=== PATIENT | male | born 2000 | race Caucasian/White ===

== ENCOUNTER 2023-05-09 00:35 | Inpatient (IN) | payer OTHER, BC ==
[2023-05-09 01:02] LABS: Hematocrit 39.8 % (42.0-52.0); Hemoglobin 12.1 g/dL (14.0-18.0); Mean Corpuscular HGB CONC 30.4 g/dL (32.0-36.0); Mean Corpuscular Hemoglobin 30.5 pg (25.0-35.0); Mean Corpuscular Volume 100.3 fl (78.0-98.0); Mean Platelet Volume 9.1 fL (7.4-10.4); Platelet Count 283 10x3/uL (130-400); RBC Distribution Width 11.9 % (11.5-14.5); Red Blood Cell (RBC) Count 3.97 mill/uL (4.00-5.20); White Blood Cell (WBC) Count 15.3 10x3/uL (4.8-10.8)
[2023-05-09] MEDS ORDERED: Calcium Chloride 1 GM/10 ML Abboject SYRINGE ONE (01:02)
[2023-05-09] MEDS ORDERED: Norepinephrine 4 MG/4 ML VIAL ONE (01:02)
[2023-05-09 01:03] LABS: Delete Auto Diff?? YES; Manual Diff?? YES
[2023-05-09] MEDS ORDERED: Sodium Bicarb 50 MEQ/50 ML VIAL ONE (01:03)
[2023-05-09] MEDS ORDERED: Sodium Chloride 0.9% 250 ML 250 ML ONE (01:08)
[2023-05-09 01:21] LABS: INR-International Normal Ratio 5.9; Prothrombin Time 55.3 sec (12.0-14.7)
[2023-05-09] MEDS ORDERED: Rocuronium Bromide 10 MG/ML (10ML VIAL) ONE ×4 (01:21→13:16)
[2023-05-09] MEDS ORDERED: PROPOFOL 0 ML ONE (01:22)
[2023-05-09 01:29] LABS: Acetaminophen Less than 10 mcg/mL (10.0-30.0); Alcohol 141.3 mg/dL (Less than 10); Salicylate Less than 8.0 mg/dL (15.0-30.0)
[2023-05-09] MEDS ORDERED: Boostrix 0.5 ML (Tdap) VIAL (>/=7 yrs of age) ONE ×2 (01:31→04:21)
[2023-05-09 01:47] LABS: ALT (SGPT) 429 U/L (8-55); AST (SGOT) 501 U/L (5-34); Alkaline Phosphatase 53 U/L (50-130); BUN (Urea Nitrogen) 12 mg/dL (8.9-20.6); Bilirubin, Total 0.2 mg/dL (0.2-1.2); Calc. Creatinine Clearance 0 mL/min (70-130); Estimated GFR 61; Globulin 1.9 g/dL (2.4-3.5); Glucose 132 mg/dL (70-105); Magnesium 2.9 mg/dL (1.7-2.2); Potassium 3.5 mmol/L (3.5-5.1)
[2023-05-09] MEDS ORDERED: levETIRAcetam 500 MG/5 ML VIAL ONE (01:47)
[2023-05-09] MEDS ORDERED: Propofol 1,000 MG/100 ML VIAL IV ONE (01:54)
[2023-05-09 02:19] LABS: Anisocytosis SLIGHT = 6-15 cells HPF (0-5); Band 6 % (5-11); Burr Cells SLIGHT = 2-5 cells HPF (0-1); CellaVision Operator ID LAB.JMM; Lymphocytes 38 % (28-48); Neutrophil 56 % (31-61); Platelet Adequacy Comment Platelets Normal; Smudge Cells 14.4 %; Total Cell Count 104
[2023-05-09 02:42] LABS: Troponin I Less than 0.010 ng/mL (< 0.028)
[2023-05-09 02:49] LABS: Calcium 8.7 mg/dL (7.6-10.4); Chloride 104 mmol/L (98-107); Sodium 140 mmol/L (136-145)
[2023-05-09 02:50] LABS: Anion Gap 20 mmol/L (10-20); Carbon Dioxide 20 mmol/L (22-29)
[2023-05-09 02:56] LABS: PTT 30.3 sec (22.9-36.1)
[2023-05-09] MEDS ORDERED: Dexamethasone 4 mg/ml Vial SLOW IVP SCH (03:00)
[2023-05-09 03:02] LABS: Amphetamine Not Detected (NotDetected); Barbiturates Screen Not Detected (NotDetected); Benzodiazepine Screen Not Detected (NotDetected); Cocaine Metabolite Screen Not Detected (NotDetected); Methadone Not Detected (NotDetected); Methamphetamine Not Detected (NotDetected); Opiate Screen Not Detected (NotDetected); Oxycodone Screen Not Detected (NotDetected); Phencyclidine (PCP) Not Detected (NotDetected); THC/Cannabinoid Screen Not Detected (NotDetected); Tricyclic Screen Not Detected (NotDetected)
[2023-05-09 03:09] LABS: Bacteria/HPF None Seen HPF (None Seen); Bilirubin Negative (Negative); Blood, Urine 3+ (Negative); CAUTI Indications for Culture Urological Procedure; Clarity Turbid (Clear); Glucose, Urine (Dipstick) Normal (Negative); Ketone, Urine Negative (Negative); Leukocyte Negative Leu/uL (Negative); Nitrite Negative (Negative); Protein, Urine (Dipstick) 50 mg/dL (Neg-Trace); RBC/HPF Greater than 50 HPF (0-3); Specific Gravity, Urine 1.022 (1.002-1.036); Squamous Epithelial None Seen HPF (0-3); Urobilinogen Normal mg/dL (Less than 2); WBC/HPF 21-50 HPF (0-3); pH, Urine 6.5 (5.0-9.0)
[2023-05-09 03:10] LABS: Urine Culture Reflex Yes Yes
[2023-05-09 03:23] LABS: Actual Bicarbonate (HCO3a) 16.5 mEq/L (22-28); Analyzer IN Cardio ER; Base Excess (BEa) -12.4 mEq/L (-2.0 to +3.0); CO2 Tension 48.8 mmHg (35.0-45.0); Calcium, Ionized (arterial) 1.31 mmol/L (1.12-1.30); Carboxyhemoglobin (COHb) 0.3 gm% (0.0-3.0); Hematocrit-ABG 43 % (42.0-52.0); Hemoglobin (Hb) 14.7 g/dL (11.4-15.4); O2 Tension (PaO2), arterial 391.2 mmHg (80.0-100.0); Potassium - ABG Lab 4.25 mmol/L (3.70-5.30); Puncture Site LRA; pH, Arterial 7.147 (7.35-7.45)
[2023-05-09] MEDS ORDERED: Acetaminophen 325 MG TAB PO PRN (03:37)
[2023-05-09] MEDS ORDERED: Fentanyl BOLUS 250 ML IVPB PRN (03:45)
[2023-05-09] MEDS ORDERED: Ventilator Sedation Protocol 1 EACH FS SCH (03:45)
[2023-05-09] MEDS ORDERED: DISCONTINUE PREVIOUS NARCOTIC PAIN MEDICATIONS AND BENZODIAZEPINES FS SCH (03:45)
[2023-05-09] MEDS ORDERED: Propofol BOLUS 1,000 MG/100 ML VIAL IV PRN (03:45)
[2023-05-09] MEDS ORDERED: Electrolyte Replacement Protocol 1 EACH FS SCH (04:00)
[2023-05-09] MEDS: Lorazepam 2 MG/ML VIAL SLOW IVP PRN (04:05)
[2023-05-09] MEDS: Dexamethasone 4 mg/ml Vial SLOW IVP SCH ×3 (06:28→17:14)
[2023-05-09] MEDS: Potassium Chloride 20 MEQ in Premix 1 BAG IVPB SCH ×2 (06:29→08:19)
[2023-05-09 06:53] LABS: #Monocytes 1.1 thou/uL (0.11-0.59); #Neutrophils 11.5 thou/uL (1.40-6.50); %Basophils 0.1 % (0.0-1.0); %Eosinophils 0.1 % (0.0-10.0); %Monocytes 8.3 % (0.0-4.0); Hematocrit 39.9 % (42.0-52.0); Hemoglobin 14.1 g/dL (14.0-18.0); Mean Corpuscular HGB CONC 35.3 g/dL (32.0-36.0); Mean Corpuscular Hemoglobin 29.8 pg (25.0-35.0); Mean Platelet Volume 8.9 fL (7.4-10.4); Platelet Count 235 10x3/uL (130-400); RBC Distribution Width 12.6 % (11.5-14.5); Red Blood Cell (RBC) Count 4.73 mill/uL (4.00-5.20); White Blood Cell (WBC) Count 13.7 10x3/uL (4.8-10.8)
[2023-05-09] MEDS: Morphine 2 MG/ML VIAL SLOW IVP PRN (06:53)
[2023-05-09 07:01] LABS: Lactic Acid 3.6 mmol/L (0.5-2.2)
[2023-05-09] MEDS: Sodium Chloride 0.9% 1,000 ML IV SCH ×2 (07:01→14:00)
[2023-05-09 07:04] LABS: Phosphorus 2.3 mg/dL (2.3-4.7)
[2023-05-09 07:09] LABS: INR-International Normal Ratio 1.1; PTT 23.7 sec (22.9-36.1); Prothrombin Time 14.9 sec (12.0-14.7)
[2023-05-09] MEDS ORDERED: Albumin 5% 500 ML ONE (07:11)
[2023-05-09] MEDS ORDERED: Vasopressin 20 UNITS/ML VIAL ONE (07:12)
[2023-05-09] MEDS ORDERED: Midazolam HCl 2 mg/2 ml Vial ONE ×3 (07:13→12:01)
[2023-05-09] MEDS ORDERED: fentaNYL PF 100 MCG/2 ML SYRINGE ONE ×4 (07:13→12:02)
[2023-05-09] MEDS ORDERED: Vancomycin 1 GM VIAL ONE ×2 (07:27→09:43)
[2023-05-09 07:28] LABS: Mean Corpuscular Volume 84.4 fl (78.0-98.0)
[2023-05-09] MEDS ORDERED: Fentanyl CADD 100 ML ONE (08:12)
[2023-05-09] MEDS ORDERED: ePHEDrine Sulfate 50 MG/10 ML VIAL ONE (08:19)
[2023-05-09] MEDS ORDERED: PHENYLEPHRINE-NS 100 MCG/ML 10 ML SYRINGE ONE ×2 (08:44→11:14)
[2023-05-09] MEDS ORDERED: Vecuronium 10 MG VIAL ONE ×2 (08:44→09:13)
[2023-05-09] MEDS ORDERED: Albuterol HFA (OR) 200 PUFF INH ONE (08:44)
[2023-05-09] MEDS ORDERED: Famotidine 20 MG TAB PO SCH (09:00)
[2023-05-09] MEDS ORDERED: Albuterol 200 PUFF (6.7GM INHALER) ONE (09:45)
[2023-05-09] MEDS ORDERED: Albuterol Sulfate 200 PUFF INH ONE (09:49)
[2023-05-09 09:53] LABS: INR-International Normal Ratio 1.1; Prothrombin Time 14.3 sec (12.0-14.7)
[2023-05-09] MEDS ORDERED: Dexamethasone 20 MG/5 ML VIAL ONE (11:27)
[2023-05-09] MEDS ORDERED: Iopamidol-370 76% 500 ML MDV (1 ML CHARGE) ONE (13:29)
[2023-05-09] MEDS: Folic Acid 1 MG TAB PO SCH (14:00)
[2023-05-09] MEDS: Fentanyl CADD 100 ML IV SCH (14:00)
[2023-05-09] MEDS: Famotidine/PF 20 mg/2ml Vial SLOW IVP SCH ×2 (14:00→21:42)
[2023-05-09] MEDS: CEFAZOLIN 2 GM in Sodium Chloride 0.9% 100 ML IVPB SCH ×2 (14:00→21:49)
[2023-05-09] MEDS ORDERED: CEFAZOLIN 1 GM VIAL SLOW IVP SCH (14:00)
[2023-05-09] MEDS: Propofol 1,000 MG/100 ML VIAL IV PRN ×3 (14:00→22:09)
[2023-05-09] MEDS: Thiamine HCl 200 MG/2 ML VIAL SLOW IVP SCH (14:02)
[2023-05-09 14:28] LABS: Hematocrit 36.7 % (42.0-52.0); Hemoglobin 12.8 g/dL (14.0-18.0)
[2023-05-09] MEDS ORDERED: FLU VACC QS2023-24(6MOS UP)/PF 60 MCG/0.5 ML SYRINGE IM ONE (15:00)
[2023-05-09] MEDS ORDERED: Promethazine HCl 25 MG in Sodium Chloride 0.9% 50 ML IVPB PRN (15:15)
[2023-05-09] MEDS: Ondansetron PF 4 MG/2 ML Vial IVP PRN (15:31)
[2023-05-10] MEDS: Sodium Chloride 0.9% 1,000 ML IV SCH ×4 (00:40→22:45)
[2023-05-10] MEDS: Dexamethasone 4 mg/ml Vial SLOW IVP SCH ×5 (00:40→23:35)
[2023-05-10] MEDS: Propofol 1,000 MG/100 ML VIAL IV PRN ×3 (01:47→09:16)
[2023-05-10] MEDS ORDERED: Refresh Lacri-lube Opth Oint 7 GM TUBE EA EYE PRN (02:13)
[2023-05-10] MEDS ORDERED: MINERAL OIL/WHITE PETROLATUM 3.5 GM TUBE EA EYE PRN (02:16)
[2023-05-10] MEDS ORDERED: Ibuprofen 600 MG TAB PO PRN (02:28)
[2023-05-10 04:54] LABS: #Monocytes 1.2 thou/uL (0.11-0.59); #Neutrophils 10.7 thou/uL (1.40-6.50); %Basophils 0.1 % (0.0-1.0); %Monocytes 9.3 % (0.0-4.0); %Neutrophils 81.2 % (31.0-61.0); Hematocrit 31.9 % (42.0-52.0); Hemoglobin 11.2 g/dL (14.0-18.0); Mean Corpuscular HGB CONC 35.1 g/dL (32.0-36.0); Mean Corpuscular Hemoglobin 29.9 pg (25.0-35.0); Mean Corpuscular Volume 85.1 fl (78.0-98.0); Mean Platelet Volume 9.3 fL (7.4-10.4); Platelet Count 208 10x3/uL (130-400); RBC Distribution Width 13.1 % (11.5-14.5); Red Blood Cell (RBC) Count 3.75 mill/uL (4.00-5.20); White Blood Cell (WBC) Count 13.1 10x3/uL (4.8-10.8)
[2023-05-10 05:30] LABS: ALT (SGPT) 305 U/L (8-55); AST (SGOT) 211 U/L (5-34); Albumin 3.6 g/dL (3.5-5.0); Alkaline Phosphatase 57 U/L (50-130); Anion Gap 12 mmol/L (10-20); BUN (Urea Nitrogen) 17 mg/dL (8.9-20.6); Bilirubin, Total 0.5 mg/dL (0.2-1.2); Calc. Creatinine Clearance 142 mL/min (70-130); Calcium 8.4 mg/dL (7.8-10.44); Carbon Dioxide 19 mmol/L (22-29); Chloride 112 mmol/L (98-107); Estimated GFR 92; Globulin 2.3 g/dL (2.4-3.5); Glucose 161 mg/dL (70-105); Potassium 3.9 mmol/L (3.5-5.1); Protein, Total 5.9 g/dL (6.0-8.3); Sodium 139 mmol/L (136-145)
[2023-05-10] MEDS: CEFAZOLIN 2 GM in Sodium Chloride 0.9% 100 ML IVPB SCH ×3 (05:43→23:34)
[2023-05-10 07:35] LABS: Actual Bicarbonate (HCO3a) 17.2 mEq/L (22-28); Base Excess (BEa) -4.9 mEq/L (-2.0 to +3.0); Calcium, Ionized (arterial) 1.11 mmol/L (1.12-1.30); Carboxyhemoglobin (COHb) 1.1 gm% (0.0-3.0); Hematocrit-ABG 39 % (42.0-52.0); Hemoglobin (Hb) 13.2 g/dL (11.4-15.4); O2 Tension (PaO2), arterial 87.2 mmHg (80.0-100.0); Potassium - ABG Lab 3.94 mmol/L (3.70-5.30); pH, Arterial 7.463 (7.35-7.45)
[2023-05-10] MEDS: Fentanyl CADD 100 ML IV SCH (07:46)
[2023-05-10 07:47] LABS: ALV-art Gradient 167.375 mmHg (0-20); Puncture Site Arterial Line
[2023-05-10] MEDS ORDERED: Dexmedetomidine In 0.9 % NaCl 100 ML IVPB SCH (08:45)
[2023-05-10] MEDS: Dexmedetomidine 400 MCG, Admixture Fee 1 EACH in Sodium Chloride 0.9% 96 ML IVPB SCH ×2 (09:08→17:10)
[2023-05-10] MEDS: Lorazepam 2 MG/ML VIAL SLOW IVP PRN (09:16)
[2023-05-10] MEDS: Famotidine/PF 20 mg/2ml Vial SLOW IVP SCH ×2 (10:16→21:03)
[2023-05-10] MEDS: Thiamine HCl 200 MG/2 ML VIAL SLOW IVP SCH (10:16)
[2023-05-10] MEDS: Folic Acid 1 MG TAB PO SCH (10:16)
[2023-05-10] MEDS: Morphine 2 MG/ML VIAL SLOW IVP PRN ×2 (16:57→21:03)
[2023-05-10] MEDS ORDERED: DC Sedation Protocol FS ONE (18:23)
[2023-05-10] MEDS ORDERED: Ketorolac Tromethamine 30 MG/ML VIAL IVP SCH (21:00)
[2023-05-10] MEDS ORDERED: Methocarbamol 1 GM in Sodium Chloride 0.9% 100 ML IVPB PRN (21:00)
[2023-05-11] MEDS: Morphine 2 MG/ML VIAL SLOW IVP PRN ×3 (01:20→13:57)
[2023-05-11] MEDS: Ondansetron PF 4 MG/2 ML Vial IVP PRN (01:23)
[2023-05-11] MEDS: Dexmedetomidine 400 MCG, Admixture Fee 1 EACH in Sodium Chloride 0.9% 96 ML IVPB SCH ×4 (01:23→23:30)
[2023-05-11 04:54] LABS: #Monocytes 0.8 thou/uL (0.11-0.59); %Lymphocytes 10.7 % (28.0-48.0); %Monocytes 6.5 % (0.0-4.0); %Neutrophils 82.6 % (31.0-61.0); Hematocrit 28.6 % (42.0-52.0); Hemoglobin 9.9 g/dL (14.0-18.0); Mean Corpuscular HGB CONC 34.6 g/dL (32.0-36.0); Mean Corpuscular Volume 86.7 fl (78.0-98.0); Mean Platelet Volume 9.4 fL (7.4-10.4); Platelet Count 168 10x3/uL (130-400); RBC Distribution Width 12.6 % (11.5-14.5); White Blood Cell (WBC) Count 12.1 10x3/uL (4.8-10.8)
[2023-05-11 05:17] LABS: ALT (SGPT) 192 U/L (8-55); AST (SGOT) 130 U/L (5-34); Albumin 3.6 g/dL (3.5-5.0); Alkaline Phosphatase 53 U/L (50-130); Anion Gap 13 mmol/L (10-20); BUN (Urea Nitrogen) 13 mg/dL (8.9-20.6); Bilirubin, Total 0.4 mg/dL (0.2-1.2); Calc. Creatinine Clearance 228 mL/min (70-130); Calcium 8.5 mg/dL (7.8-10.44); Carbon Dioxide 23 mmol/L (22-29); Chloride 110 mmol/L (98-107); Estimated GFR 132; Globulin 2.3 g/dL (2.4-3.5); Glucose 141 mg/dL (70-105); Potassium 4.4 mmol/L (3.5-5.1); Protein, Total 5.9 g/dL (6.0-8.3); Sodium 142 mmol/L (136-145)
[2023-05-11] MEDS: CEFAZOLIN 2 GM in Sodium Chloride 0.9% 100 ML IVPB SCH ×3 (06:26→21:00)
[2023-05-11] MEDS: Dexamethasone 4 mg/ml Vial SLOW IVP SCH ×4 (06:26→23:12)
[2023-05-11] MEDS ORDERED: Ondansetron PF 4 MG/2 ML Vial ONE ×2 (07:33→08:05)
[2023-05-11] MEDS ORDERED: PROPOFOL 20 ML ONE (07:33)
[2023-05-11] MEDS ORDERED: Dexamethasone 4 mg/ml Vial ONE (07:33)
[2023-05-11] MEDS ORDERED: fentaNYL PF 100 MCG/2 ML SYRINGE ONE ×2 (07:33→07:55)
[2023-05-11] MEDS ORDERED: Rocuronium Bromide 10 MG/ML (10ML VIAL) ONE ×2 (07:33→08:05)
[2023-05-11] MEDS: Sodium Chloride 0.9% 1,000 ML IV SCH ×3 (07:43→22:50)
[2023-05-11] MEDS: Famotidine/PF 20 mg/2ml Vial SLOW IVP SCH ×2 (07:43→20:04)
[2023-05-11] MEDS: Folic Acid 1 MG TAB PO SCH (07:43)
[2023-05-11] MEDS: Thiamine HCl 200 MG/2 ML VIAL SLOW IVP SCH (07:44)
[2023-05-11] MEDS ORDERED: Midazolam HCl 2 mg/2 ml Vial ONE ×2 (07:55→10:04)
[2023-05-11] MEDS ORDERED: NEOSTIGMINE 3 MG/3 ML SYR 3 MG/3 ML SYRINGE ONE ×2 (08:05→09:52)
[2023-05-11] MEDS ORDERED: Glycopyrrolate 0.2 MG/ML 5 ML SYRINGE ONE ×2 (08:05→09:52)
[2023-05-11] MEDS ORDERED: PROPOFOL 200 MG/20 ML VIAL ONE (08:05)
[2023-05-11] MEDS ORDERED: Dexamethasone 20 MG/5 ML VIAL ONE (08:05)
[2023-05-11] MEDS ORDERED: CEFAZOLIN 1 GM VIAL ONE (08:29)
[2023-05-11] MEDS ORDERED: fentaNYL 50 mcg/mL 1 mL Vial ONE (09:27)
[2023-05-11] MEDS ORDERED: diphenhydrAMINE 25 MG CAP PO PRN (15:44)
[2023-05-11] MEDS ORDERED: diphenhydrAMINE 50 MG/ML VIAL IM PRN (15:44)
[2023-05-11] MEDS ORDERED: Naloxone HCl 0.4 mg/ml Vial IV PRN (15:44)
[2023-05-11] MEDS ORDERED: Promethazine HCl 25 MG/ML VIAL IM PRN (15:44)
[2023-05-11] MEDS ORDERED: Communication Order-Pharmacy FS SCH (15:45)
[2023-05-11] MEDS: Ketorolac Tromethamine 30 MG/ML VIAL IVP SCH ×2 (16:04→22:49)
[2023-05-11] MEDS: Acetaminophen 325 MG TAB PO SCH ×3 (16:09→22:54)
[2023-05-11] MEDS: HYDROmorphone/PF 10 MG in Sodium Chloride 0.9% 99 ML IV PRN (17:17)
[2023-05-11] MEDS: Ipratropium/Albuterol 3 ML NEB IPPB SCH ×2 (18:29→23:38)
[2023-05-11] MEDS: diphenhydrAMINE 50 MG/ML VIAL IVP PRN (20:04)
[2023-05-12] MEDS ORDERED: Labetalol HCl 100 MG/20 ML VIAL SLOW IVP PRN (01:20)
[2023-05-12] MEDS: diphenhydrAMINE 50 MG/ML VIAL IVP PRN ×2 (01:28→21:18)
[2023-05-12] MEDS: hydrALAZINE 20 MG/ML VIAL SLOW IVP PRN ×2 (01:29→03:08)
[2023-05-12] MEDS: Acetaminophen 325 MG TAB PO SCH ×6 (03:04→23:08)
[2023-05-12] MEDS: Dexmedetomidine 400 MCG, Admixture Fee 1 EACH in Sodium Chloride 0.9% 96 ML IVPB SCH ×2 (03:05→08:08)
[2023-05-12] MEDS: Dexamethasone 4 mg/ml Vial SLOW IVP SCH ×4 (05:09→23:08)
[2023-05-12] MEDS: CEFAZOLIN 2 GM in Sodium Chloride 0.9% 100 ML IVPB SCH ×3 (05:21→21:17)
[2023-05-12] MEDS: Ipratropium/Albuterol 3 ML NEB IPPB SCH ×3 (06:43→21:22)
[2023-05-12] MEDS: Famotidine/PF 20 mg/2ml Vial SLOW IVP SCH ×2 (07:59→22:04)
[2023-05-12] MEDS: Sodium Chloride 0.9% 1,000 ML IV SCH ×3 (07:59→23:33)
[2023-05-12] MEDS: Thiamine HCl 200 MG/2 ML VIAL SLOW IVP SCH (08:00)
[2023-05-12] MEDS: Ketorolac Tromethamine 30 MG/ML VIAL IVP SCH ×3 (08:00→23:08)
[2023-05-12] MEDS: Folic Acid 1 MG TAB PO SCH (08:00)
[2023-05-12 13:15] LABS: CO2 Tension 24.5 mmHg (35.0-45.0)
[2023-05-13] MEDS: Ipratropium/Albuterol 3 ML NEB IPPB SCH ×4 (02:19→18:09)
[2023-05-13] MEDS: Dexmedetomidine 400 MCG, Admixture Fee 1 EACH in Sodium Chloride 0.9% 96 ML IVPB SCH ×2 (02:25→15:03)
[2023-05-13] MEDS: Acetaminophen 325 MG TAB PO SCH ×5 (03:27→21:05)
[2023-05-13] MEDS: CEFAZOLIN 2 GM in Sodium Chloride 0.9% 100 ML IVPB SCH ×3 (05:06→21:05)
[2023-05-13] MEDS: Dexamethasone 4 mg/ml Vial SLOW IVP SCH ×3 (05:06→17:04)
[2023-05-13] MEDS: Sodium Chloride 0.9% 1,000 ML IV SCH (08:52)
[2023-05-13] MEDS: Ketorolac Tromethamine 30 MG/ML VIAL IVP SCH ×2 (08:57→15:04)
[2023-05-13] MEDS: Famotidine/PF 20 mg/2ml Vial SLOW IVP SCH ×2 (08:57→21:09)
[2023-05-13] MEDS: Thiamine HCl 200 MG/2 ML VIAL SLOW IVP SCH (08:57)
[2023-05-13] MEDS: Folic Acid 1 MG TAB PO SCH (08:58)
[2023-05-13] MEDS: Ondansetron PF 4 MG/2 ML Vial IVP PRN (09:37)
[2023-05-13] MEDS: HYDROmorphone/PF 10 MG in Sodium Chloride 0.9% 99 ML IV PRN (11:31)
[2023-05-13] MEDS: carBAMazepine 200 MG TAB PO SCH ×2 (11:34→17:03)
[2023-05-13] MEDS: cloNIDine 0.1 MG TAB PO SCH ×2 (12:30→17:01)
[2023-05-13] MEDS ORDERED: Iopamidol-370 76% 500 ML MDV (1 ML CHARGE) ONE (13:57)
[2023-05-13] MEDS: Senokot S 8.6-50 MG TAB PO SCH (21:05)
[2023-05-14] MEDS: Dexamethasone 4 mg/ml Vial SLOW IVP SCH ×5 (00:06→23:03)
[2023-05-14] MEDS: Acetaminophen 325 MG TAB PO SCH ×7 (00:08→23:03)
[2023-05-14] MEDS: cloNIDine 0.1 MG TAB PO SCH ×5 (00:08→23:05)
[2023-05-14] MEDS: Ipratropium/Albuterol 3 ML NEB IPPB SCH ×4 (00:14→18:46)
[2023-05-14] MEDS: CEFAZOLIN 2 GM in Sodium Chloride 0.9% 100 ML IVPB SCH ×3 (05:23→21:59)
[2023-05-14] MEDS: Dexmedetomidine 400 MCG, Admixture Fee 1 EACH in Sodium Chloride 0.9% 96 ML IVPB SCH (05:28)
[2023-05-14 07:43] LABS: Hematocrit 34.1 % (42.0-52.0); Hemoglobin 11.8 g/dL (14.0-18.0); Mean Corpuscular HGB CONC 34.6 g/dL (32.0-36.0); Mean Corpuscular Hemoglobin 30.1 pg (25.0-35.0); Mean Platelet Volume 9.4 fL (7.4-10.4); Platelet Count 275 10x3/uL (130-400); RBC Distribution Width 11.9 % (11.5-14.5); Red Blood Cell (RBC) Count 3.92 mill/uL (4.00-5.20); White Blood Cell (WBC) Count 12.9 10x3/uL (4.8-10.8)
[2023-05-14 07:54] LABS: Delete Auto Diff?? YES; Manual Diff?? YES
[2023-05-14 08:21] LABS: Band 1 % (5-11); Lymphocytes 13 % (28-48); Monocytes 8 % (0-4); Neutrophil 78 % (31-61); Platelet Adequacy Comment Platelets Normal; RBC Morphology Within Normal Limits; Total Cell Count 99
[2023-05-14] MEDS: Ondansetron PF 4 MG/2 ML Vial IVP PRN ×2 (08:50→18:35)
[2023-05-14] MEDS: carBAMazepine 200 MG TAB PO SCH ×3 (08:56→17:26)
[2023-05-14] MEDS: Folic Acid 1 MG TAB PO SCH (08:57)
[2023-05-14] MEDS: Polyethylene Glycol 3350 17 GM Packet PO SCH (08:57)
[2023-05-14] MEDS: Famotidine/PF 20 mg/2ml Vial SLOW IVP SCH ×2 (08:57→20:24)
[2023-05-14] MEDS: Senokot S 8.6-50 MG TAB PO SCH ×2 (08:58→20:24)
[2023-05-14] MEDS: Thiamine HCl 200 MG/2 ML VIAL SLOW IVP SCH (08:58)
[2023-05-14] MEDS ORDERED: Ibuprofen 200 MG TAB PO PRN (13:25)
[2023-05-14] MEDS: Cyclobenzaprine 10 MG TAB PO PRN (23:03)
[2023-05-15] MEDS: Acetaminophen 325 MG TAB PO SCH ×7 (03:56→23:24)
[2023-05-15] MEDS: Dexamethasone 4 mg/ml Vial SLOW IVP SCH ×4 (05:42→23:20)
[2023-05-15] MEDS: cloNIDine 0.1 MG TAB PO SCH ×4 (05:42→23:21)
[2023-05-15] MEDS: CEFAZOLIN 2 GM in Sodium Chloride 0.9% 100 ML IVPB SCH (05:43)
[2023-05-15 06:07] LABS: Hematocrit 36.3 % (42.0-52.0); Hemoglobin 12.3 g/dL (14.0-18.0); Mean Corpuscular HGB CONC 33.9 g/dL (32.0-36.0); Mean Corpuscular Hemoglobin 29.8 pg (25.0-35.0); Mean Corpuscular Volume 87.9 fl (78.0-98.0); Mean Platelet Volume 10.8 fL (7.4-10.4); Platelet Count 240 10x3/uL (130-400); RBC Distribution Width 12.2 % (11.5-14.5); Red Blood Cell (RBC) Count 4.13 mill/uL (4.00-5.20); White Blood Cell (WBC) Count 14.6 10x3/uL (4.8-10.8)
[2023-05-15 06:24] LABS: Delete Auto Diff?? YES; Manual Diff?? YES
[2023-05-15] MEDS: Ondansetron PF 4 MG/2 ML Vial IVP PRN (06:50)
[2023-05-15] MEDS: Ipratropium/Albuterol 3 ML NEB IPPB SCH ×4 (07:11→19:48)
[2023-05-15 07:34] LABS: Band 2 % (5-11); Burr Cells SLIGHT = 2-5 cells HPF (0-1); CellaVision Operator ID LAB.NR; Hypochromia SLIGHT = 6-15 cells HPF (0-5); Lymphocytes 14 % (28-48); Macrocytosis SLIGHT = 6-15 cells HPF (0-5); Monocytes 13 % (0-4); Neutrophil 71 % (31-61); Platelet Adequacy Comment Platelets Normal; Polychromasia SLIGHT = 2-3 cells HPF (0-2); Total Cell Count 100
[2023-05-15] MEDS ORDERED: Morphine 4 MG/ML VIAL SLOW IVP PRN (08:50)
[2023-05-15] MEDS ORDERED: Benzocaine 20% Spray 60 ML CAN PO SCH (09:00)
[2023-05-15] MEDS: Polyethylene Glycol 3350 17 GM Packet PO SCH (09:41)
[2023-05-15] MEDS: Senokot S 8.6-50 MG TAB PO SCH ×2 (09:44→20:02)
[2023-05-15] MEDS: Famotidine/PF 20 mg/2ml Vial SLOW IVP SCH ×2 (09:44→20:00)
[2023-05-15] MEDS: Thiamine HCl 200 MG/2 ML VIAL SLOW IVP SCH (09:44)
[2023-05-15] MEDS: Folic Acid 1 MG TAB PO SCH (09:44)
[2023-05-15] MEDS: carBAMazepine 200 MG TAB PO SCH ×3 (09:44→17:44)
[2023-05-15 10:07] VITALS: BMI 32.2
[2023-05-15] MEDS: traMADol HCl 50 MG TAB PO SCH ×4 (12:09→23:24)
[2023-05-15] MEDS: Morphine 2 MG/ML VIAL SLOW IVP PRN (16:53)
[2023-05-15] MEDS: Cyclobenzaprine 10 MG TAB PO PRN (20:00)
[2023-05-16] MEDS: Ipratropium/Albuterol 3 ML NEB IPPB SCH ×4 (00:56→19:37)
[2023-05-16] MEDS: Morphine 2 MG/ML VIAL SLOW IVP PRN (01:41)
[2023-05-16] MEDS: Acetaminophen 325 MG TAB PO SCH ×8 (03:46→23:27)
[2023-05-16] MEDS: cloNIDine 0.1 MG TAB PO SCH ×5 (04:41→23:28)
[2023-05-16] MEDS: Dexamethasone 4 mg/ml Vial SLOW IVP SCH ×4 (04:42→23:26)
[2023-05-16] MEDS: traMADol HCl 50 MG TAB PO SCH ×4 (04:42→23:22)
[2023-05-16] MEDS: Ondansetron PF 4 MG/2 ML Vial IVP PRN (05:56)
[2023-05-16] MEDS: Polyethylene Glycol 3350 17 GM Packet PO SCH (05:56)
[2023-05-16] MEDS: Senokot S 8.6-50 MG TAB PO SCH ×2 (05:56→20:00)
[2023-05-16] MEDS: Folic Acid 1 MG TAB PO SCH (08:45)
[2023-05-16] MEDS: Thiamine HCl 200 MG/2 ML VIAL SLOW IVP SCH (08:45)
[2023-05-16] MEDS: carBAMazepine 200 MG TAB PO SCH ×3 (08:45→17:17)
[2023-05-16] MEDS: Famotidine/PF 20 mg/2ml Vial SLOW IVP SCH ×2 (08:45→20:04)
[2023-05-16] MEDS: Gabapentin 300 MG CAP PO SCH ×3 (14:46→20:03)
[2023-05-17] MEDS: Ipratropium/Albuterol 3 ML NEB IPPB SCH ×4 (01:47→19:13)
[2023-05-17] MEDS: Acetaminophen 325 MG TAB PO SCH ×6 (03:33→23:31)
[2023-05-17] MEDS: Cyclobenzaprine 10 MG TAB PO PRN ×2 (04:14→20:45)
[2023-05-17] MEDS ORDERED: Dexamethasone 4 mg/ml Vial SLOW IVP SCH (06:00)
[2023-05-17] MEDS: Dexamethasone 4 mg/ml Vial SLOW IVP SCH (06:04)
[2023-05-17] MEDS: cloNIDine 0.1 MG TAB PO SCH ×4 (06:04→23:30)
[2023-05-17] MEDS: traMADol HCl 50 MG TAB PO SCH ×4 (06:04→23:31)
[2023-05-17] MEDS: Dexamethasone 1 MG TAB PO SCH ×4 (07:58→23:31)
[2023-05-17] MEDS: Folic Acid 1 MG TAB PO SCH (08:35)
[2023-05-17] MEDS: Polyethylene Glycol 3350 17 GM Packet PO SCH (08:35)
[2023-05-17] MEDS: Thiamine HCl 200 MG/2 ML VIAL SLOW IVP SCH (08:36)
[2023-05-17] MEDS: carBAMazepine 200 MG TAB PO SCH ×3 (08:36→17:19)
[2023-05-17] MEDS: Famotidine 20 MG TAB PO SCH ×2 (08:36→20:45)
[2023-05-17] MEDS: Senokot S 8.6-50 MG TAB PO SCH ×2 (08:36→20:44)
[2023-05-17] MEDS: Gabapentin 300 MG CAP PO SCH ×3 (08:37→20:45)
[2023-05-17] MEDS ORDERED: Dexamethasone 1 MG TAB PO SCH (09:00)
[2023-05-18] MEDS: Ipratropium/Albuterol 3 ML NEB IPPB SCH ×4 (01:25→18:35)
[2023-05-18] MEDS: Acetaminophen 325 MG TAB PO SCH ×6 (04:31→21:02)
[2023-05-18] MEDS: Dexamethasone 1 MG TAB PO SCH ×3 (04:55→21:07)
[2023-05-18] MEDS: cloNIDine 0.1 MG TAB PO SCH ×4 (04:56→23:15)
[2023-05-18] MEDS: traMADol HCl 50 MG TAB PO SCH ×4 (04:57→23:16)
[2023-05-18] MEDS: Thiamine HCl 200 MG/2 ML VIAL SLOW IVP SCH (08:16)
[2023-05-18] MEDS: Famotidine 20 MG TAB PO SCH ×2 (08:17→21:03)
[2023-05-18] MEDS: Senokot S 8.6-50 MG TAB PO SCH ×2 (08:17→21:03)
[2023-05-18] MEDS: Folic Acid 1 MG TAB PO SCH (08:18)
[2023-05-18] MEDS: Gabapentin 300 MG CAP PO SCH ×3 (08:18→21:05)
[2023-05-18] MEDS: carBAMazepine 200 MG TAB PO SCH ×3 (08:18→17:07)
[2023-05-18] MEDS: Polyethylene Glycol 3350 17 GM Packet PO SCH (08:19)
[2023-05-18] MEDS: Melatonin 3 MG TAB PO PRN (21:04)
[2023-05-18] MEDS: Cyclobenzaprine 10 MG TAB PO PRN (21:05)
[2023-05-18] MEDS ORDERED: Morphine 4 MG/ML VIAL SLOW IVP SCH (23:15)
[2023-05-19] MEDS: Ipratropium/Albuterol 3 ML NEB IPPB SCH ×4 (00:41→19:04)
[2023-05-19] MEDS: Acetaminophen 325 MG TAB PO SCH ×3 (01:03→08:40)
[2023-05-19] MEDS: cloNIDine 0.1 MG TAB PO SCH ×3 (06:48→17:33)
[2023-05-19] MEDS: Dexamethasone 1 MG TAB PO SCH ×3 (06:49→22:10)
[2023-05-19] MEDS: traMADol HCl 50 MG TAB PO SCH ×4 (06:49→23:06)
[2023-05-19] MEDS ORDERED: Magnesium Citrate 300 ML BOT PO SCH (07:00)
[2023-05-19] MEDS: Senokot S 8.6-50 MG TAB PO SCH ×2 (08:40→22:10)
[2023-05-19] MEDS: Thiamine HCl 200 MG/2 ML VIAL SLOW IVP SCH (08:40)
[2023-05-19] MEDS: Polyethylene Glycol 3350 17 GM Packet PO SCH (08:40)
[2023-05-19] MEDS: Cyclobenzaprine 10 MG TAB PO PRN ×2 (08:41→22:11)
[2023-05-19] MEDS: Folic Acid 1 MG TAB PO SCH (08:41)
[2023-05-19] MEDS: Gabapentin 300 MG CAP PO SCH (08:41)
[2023-05-19] MEDS: Famotidine 20 MG TAB PO SCH ×2 (08:41→22:12)
[2023-05-19] MEDS: carBAMazepine 200 MG TAB PO SCH ×3 (08:41→17:33)
[2023-05-19 12:30] LABS: #Basophils 0.1 thou/uL (0.0-0.2); #Monocytes 1.7 thou/uL (0.11-0.59); #Neutrophils 18.9 thou/uL (1.40-6.50); %Basophils 0.3 % (0.0-1.0); %Eosinophils 0.2 % (0.0-10.0); %Lymphocytes 8.1 % (28.0-48.0); %Monocytes 7.2 % (0.0-4.0); %Neutrophils 80.3 % (31.0-61.0); Hematocrit 35.4 % (42.0-52.0); Hemoglobin 12.1 g/dL (14.0-18.0); Mean Corpuscular HGB CONC 34.2 g/dL (32.0-36.0); Mean Corpuscular Hemoglobin 30.6 pg (25.0-35.0); Mean Corpuscular Volume 89.4 fl (78.0-98.0); Mean Platelet Volume 9.3 fL (7.4-10.4); Platelet Count 425 10x3/uL (130-400); RBC Distribution Width 12.5 % (11.5-14.5); Red Blood Cell (RBC) Count 3.96 mill/uL (4.00-5.20); White Blood Cell (WBC) Count 23.5 10x3/uL (4.8-10.8)
[2023-05-19 12:52] LABS: Actual Bicarbonate (HCO3a) 19.4 mEq/L (22-28); Analyzer IN Cardio OR; Base Excess (BEa) -8.3 mEq/L (-2.0 to +3.0); CO2 Tension 48.5 mmHg (35.0-45.0); Calcium, Ionized (arterial) 1.14 mmol/L (1.12-1.30); Carboxyhemoglobin (COHb) 0.3 gm% (0.0-3.0); Hematocrit-ABG 40 % (42.0-52.0); Hemoglobin (Hb) 13.6 g/dL (11.4-15.4); O2 Tension (PaO2), arterial 419.2 mmHg (80.0-100.0); Potassium - ABG Lab 4.64 mmol/L (3.70-5.30); Puncture Site Arterial Line
[2023-05-19 15:33] LABS: Band 5 % (5-11); CellaVision Operator ID LAB.GE; Lymphocytes 3 % (28-48); Monocytes 6 % (0-4); Neutrophil 83 % (31-61); Platelet Adequacy Comment Platelets Increased; Polychromasia SLIGHT = 2-3 cells HPF (0-2); Smudge Cells 13.1 %; Total Cell Count 99
[2023-05-19 15:42] LABS: Bacteria/HPF 3+ HPF (None Seen); Bilirubin Negative (Negative); Blood, Urine 2+ (Negative); CAUTI Indications for Culture Pelvic or flank pain; Clarity Turbid (Clear); Glucose, Urine (Dipstick) Normal (Negative); Ketone, Urine Negative (Negative); Leukocyte 500 Leu/uL (Negative); Nitrite Negative (Negative); Protein, Urine (Dipstick) 20 mg/dL (Neg-Trace); Specific Gravity, Urine 1.026 (1.002-1.036); Squamous Epithelial None Seen HPF (0-3); Urobilinogen Normal mg/dL (Less than 2); WBC/HPF Greater than 50 HPF (0-3)
[2023-05-19 15:47] LABS: Urine Culture Reflex Yes Yes
[2023-05-19] MEDS ORDERED: Sulfameth/Trimethoprim DS 800-160mg TAB PO SCH (16:02)
[2023-05-19] MEDS ORDERED: Triple Antibiotic Ointment 15 GM TUBE TOP SCH (21:00)
[2023-05-19] MEDS: Melatonin 3 MG TAB PO PRN (22:10)
[2023-05-19] MEDS: Pregabalin 50 MG CAP PO SCH (22:11)
[2023-05-19] MEDS: Sulfameth/Trimethoprim DS 800-160mg TAB PO SCH (22:11)
[2023-05-19] MEDS: Triple Antibiotic Ointment 30 GM TUBE TOP SCH (23:00)
[2023-05-19] MEDS: Acetaminophen 325 MG TAB PO PRN (23:05)
[2023-05-19] MEDS: traMADol HCl 50 MG TAB PO PRN (23:06)
[2023-05-20] MEDS: Ipratropium/Albuterol 3 ML NEB IPPB SCH ×3 (01:04→13:04)
[2023-05-20] MEDS: traMADol HCl 50 MG TAB PO SCH ×2 (05:25→11:24)
[2023-05-20] MEDS: Acetaminophen 325 MG TAB PO PRN ×2 (05:26→15:09)
[2023-05-20] MEDS: Pregabalin 50 MG CAP PO SCH (08:33)
[2023-05-20] MEDS: Folic Acid 1 MG TAB PO SCH (08:33)
[2023-05-20] MEDS: Senokot S 8.6-50 MG TAB PO SCH (08:33)
[2023-05-20] MEDS: Famotidine 20 MG TAB PO SCH (08:33)
[2023-05-20] MEDS: Polyethylene Glycol 3350 17 GM Packet PO SCH (08:34)
[2023-05-20] MEDS: carBAMazepine 200 MG TAB PO SCH ×2 (08:34→11:24)
[2023-05-20] MEDS: Sulfameth/Trimethoprim DS 800-160mg TAB PO SCH (08:34)
[2023-05-20] MEDS: Cyclobenzaprine 10 MG TAB PO PRN ×2 (08:34→13:49)
[2023-05-20] MEDS: traMADol HCl 50 MG TAB PO PRN ×2 (08:34→13:49)
[2023-05-20] MEDS: Triple Antibiotic Ointment 30 GM TUBE TOP SCH (08:35)
[2023-05-20] MEDS ORDERED: Bisacodyl 10 MG SUPP PR SCH (09:00)
[2023-05-20] MEDS ORDERED: Thiamine 100 MG TAB PO SCH (09:00)
[2023-05-20] MEDS ORDERED: Dexamethasone 1 MG TAB PO SCH (09:00)
[2023-05-20 11:32] VITALS: BP 127/84; TEMP 97.6
[2023-05-22] MEDS ORDERED: Dexamethasone 1 MG TAB PO SCH (09:00)
[2023-05-24] MEDS ORDERED: Dexamethasone 1 MG TAB PO SCH (09:00)
== END 2023-05-20 16:38 | DRG 957 ==
LOC: EDBD 00:35 → ERS 00:35 → CCU 03:12 → IMCU/EMU 05-13 13:36 → SURG A 05-14 18:13
PROVIDERS: ADMIT Student in an Organized Health Care Education/Training Program; ATTEND Student in an Organized Health Care Education/Training Program
PROC: 0T9B70Z Drainage of Bladder with Drainage Device, Via Natural or Artificial Opening (ICD-10-PCS; principal; 2023-05-09)
PROC: 0PB40ZZ Excision of Thoracic Vertebra, Open Approach (ICD-10-PCS; 2023-05-09)
PROC: 0RG7071 Fusion of 2 to 7 Thoracic Vertebral Joints with Autologous Tissue Substitute, Posterior Approach, Posterior Column, Open Approach (ICD-10-PCS; 2023-05-09)
PROC: 0SG0071 Fusion of Lumbar Vertebral Joint with Autologous Tissue Substitute, Posterior Approach, Posterior Column, Open Approach (ICD-10-PCS; 2023-05-09)
PROC: 0RGA071 Fusion of Thoracolumbar Vertebral Joint with Autologous Tissue Substitute, Posterior Approach, Posterior Column, Open Approach (ICD-10-PCS; 2023-05-09)
PROC: 0BC18ZZ Extirpation of Matter from Trachea, Via Natural or Artificial Opening Endoscopic (ICD-10-PCS; 2023-05-09)
PROC: 30243K1 Transfusion of Nonautologous Frozen Plasma into Central Vein, Percutaneous Approach (ICD-10-PCS; 2023-05-09)
PROC: 30243N1 Transfusion of Nonautologous Red Blood Cells into Central Vein, Percutaneous Approach (ICD-10-PCS; 2023-05-09)
PROC: 4A133R1 Monitoring of Arterial Saturation, Peripheral, Percutaneous Approach (ICD-10-PCS; 2023-05-09)
PROC: 3E043XZ Introduction of Vasopressor into Central Vein, Percutaneous Approach (ICD-10-PCS; 2023-05-09)
PROC: 30243J1 Transfusion of Nonautologous Serum Albumin into Central Vein, Percutaneous Approach (ICD-10-PCS; 2023-05-09)
PROC: 0BCJ8ZZ Extirpation of Matter from Left Lower Lung Lobe, Via Natural or Artificial Opening Endoscopic (ICD-10-PCS; 2023-05-10)
PROC: 0B9G8ZX Drainage of Left Upper Lung Lobe, Via Natural or Artificial Opening Endoscopic, Diagnostic (ICD-10-PCS; 2023-05-10)
PROC: 0PSM04Z Reposition Right Carpal with Internal Fixation Device, Open Approach (ICD-10-PCS; 2023-05-11)
PROC: 0PSH04Z Reposition Right Radius with Internal Fixation Device, Open Approach (ICD-10-PCS; 2023-05-11)
PROC: 0PSK04Z Reposition Right Ulna with Internal Fixation Device, Open Approach (ICD-10-PCS; 2023-05-11)
DX: S22.081A Stable burst fracture of T11-T12 vertebra, initial encounter for closed fracture (principal); S52.591B Other fractures of lower end of right radius, initial encounter for open fracture type I or II; G93.41 Metabolic encephalopathy; S06.5XAA Traumatic subdural hemorrhage with loss of consciousness status unknown, initial encounter; S52.691B Other fracture of lower end of right ulna, initial encounter for open fracture type I or II; T79.4XXA Traumatic shock, initial encounter; J96.00 Acute respiratory failure, unspecified whether with hypoxia or hypercapnia; D62 Acute posthemorrhagic anemia; S02.113A Unspecified occipital condyle fracture, initial encounter for closed fracture; N17.9 Acute kidney failure, unspecified; E87.20 Acidosis, unspecified; S62.031A Displaced fracture of proximal third of navicular [scaphoid] bone of right wrist, initial encounter for closed fracture; F10.129 Alcohol abuse with intoxication, unspecified; G83.9 Paralytic syndrome, unspecified; F43.21 Adjustment disorder with depressed mood
CPT/HCPCS: 36415; 36430; 36600; 70450; 70486; 70498; 70551; 71045; 71260; 72125; 72141; 72146; 72148; 72170; 74177; 75635; 80053; 80306; 80307; 81001; 82805; 83605; 83735; 84100; 84443; 84484; 85025; 85610; 85730; 86850; 86900; 86901; 87077; 87086; 87186; 90715; 93970; 94002; 94003; 94640; C1713; C1874; C1889; G0390; J0360; J0690; J1100; J1170; J1200; J1650; J1885; J1953; J2060; J2250; J2270; J2272; J2405; J2704; J2800; J3010; J3370; J3411; J3480; J3490; J7050; J7620; J8540; P9016; P9045; P9048; Q9967; S0028